=== PATIENT | male | born 1935 | race Caucasian/White ===

== ENCOUNTER 2016-12-12 19:52 | Observation (INO) | payer MEDICARE ==
--- NOTE | 2016-12-12 21:11 | ERPHSYRPT ---
- History of Present Illness Time Seen by Provider: 12/12/16 20:56 Source: patient, family (GRANDDAUGHTER) Exam Limitations: no limitations Patient Subjective Stated Complaint: per pt's family, he has been confused today and was combative with his . pt's family believes he may be dehydrated. Triage Nursing Assessment: pt confused and agitated. not able to give history at this time. pt ambulatory with steady gait noted. respirations nonlabored with lungs cta. pt able to states name. not oriented to place, time, or situation. Physician History: REPORTEDLY PT HAS BEEN CONFUSED AND COMBATIVE WITH TODAY. PT DENIES ANY CHEST PAIN, SHORTNESS OF AIR, FEVER, NAUSEA, VOMITING. Allergies/Adverse Reactions: No Known Drug Allergies Allergy (Verified 08/23/14 06:25) Home Medications: Donepezil HCl 10 mg [Aricept 10 MG] 10 mg PO DAILY 08/23/14 [History] Fenofibrate,Micronized 145 mg* [Tricor 145 MG] 160 mg PO DAILY 08/23/14 [ History] Irbesartan 150 mg [Avapro 150 MG] 150 mg PO DAILY 08/23/14 [History] Memantine HCl [Namenda] 10 mg PO DAILY 08/23/14 [History] Omeprazole 20 MG [Prilosec 20 mg] 20 mg PO DAILY 08/23/14 [History] Quetiapine Fumarate 25 mg [Seroquel 25 MG] 25 mg PO DAILY 08/23/14 [ History] Tamsulosin HCl 0.4 mg [Flomax 0.4 MG] 0.4 mg PO DAILY 08/23/14 [History] Hx Influenza Vaccination/Date Given: (unknown) Hx Pneumococcal Vaccination/Date Given: (unknown) - Review of Systems Constitutional: No Fever, No Chills Respiratory: No Cough, No Dyspnea Cardiac: No Chest Pain Abdominal/Gastrointestinal: No Abdominal Pain, No Nausea, No Vomiting Musculoskeletal: No Back Pain, No Neck Pain Neurological: Other (CONFUSION AND COMBATIVE TODAY.), No Headache All Other Systems: Reviewed and Negative - Past Medical History Pertinent Past Medical History: Yes Neurological History: Alzheimer's Disease ENT History: No Pertinent History Cardiac History: No Pertinent History Respiratory History: No Pertinent History Endocrine Medical History: No Pertinent History Musculoskeletal History: No Pertinent History GI Medical History: Diverticulosis, Gallbladder Disease History: No Pertinent History Psycho-Social History: No Pertinent History Male Reproductive Disorders: Other Other Medical History: states no prostate hx,but is on a prostate med - Past Surgical History Past Surgical History: Yes Neuro Surgical History: No Pertinent History Cardiac: No Pertinent History Respiratory: No Pertinent History Gastrointestinal: Appendectomy, Cholecystectomy, Colon Resection Genitourinary: No Pertinent History Musculoskeletal: No Pertinent History Male Surgical History: No Pertinent History Other Surgical History: colonoscopy, spouse states probably cholecystectomy - Social History Smoking Status: Never smoker Exposure to second hand smoke: No Drug Use: none Patient Lives Alone: Yes - Nursing Vital Signs Nursing Vital Signs: Initial Vital Signs Temperature 97.6 F Temperature Source Oral Pulse Rate 62 Respiratory Rate 20 Blood Pressure [] 155/95 Pain Intensity 0 - Physical Exam General Appearance: no apparent distress, alert Eye Exam: PERRL/EOMI Ears, Nose, Throat Exam: dry mucous membranes Neck Exam: normal inspection Respiratory Exam: lungs clear Cardiovascular Exam: normal heart sounds Gastrointestinal/Abdomen Exam: soft, normal bowel sounds Back Exam: normal range of motion Extremity Exam: normal inspection, No pedal edema Neurologic Exam: alert, cooperative, depot agent II-XII nml as tested, No oriented x 3 ( PT WILL ANSWER SIMPLE QUESTIONS) Skin Exam: warm, dry SpO2 Interpretation: normal SpO2: 97 Oxygen Delivery: Room Air - Course Nursing assessment & vital signs reviewed: Yes EKG Interpreted by Me: RATE (60), Sinus Rhythm, Left Melfa Deviation, Other (1ST DEGREE A-V BLOCK) - Radiology Exams Chest X-ray Interpretation: Interpreted by me, No Pneumonia - CT Exams Head CT Interpretation: Discussed w/radiologist (NONACUTE SENILE BRAIN) Ordered Tests: Active Orders 24 hr Category Date Time Status EKG-ER Only STAT Care 12/12/16 21:08 Active IV Insertion STAT Care 12/12/16 21:08 Active CHEST 1 VIEW (PORTABLE) Stat Exams 12/12/16 21:08 Taken HEAD WITHOUT CONTRAST [CT] Stat Exams 12/12/16 21:08 Taken AMYLASE Stat Lab 12/12/16 21:25 Completed CBC W DIFF Stat Lab 12/12/16 21:25 Completed CMP Stat Lab 12/12/16 21:25 Completed LIPASE Stat Lab 12/12/16 21:25 Completed MAG [MAGNESIUM] Stat Lab 12/12/16 21:25 Completed T4 Stat Lab 12/12/16 21:25 Completed TROPONIN Stat Lab 12/12/16 21:25 Completed TSH [TSH, 3RD Generation] Stat Lab 12/12/16 21:25 Completed UA Stat Lab 12/12/16 21:11 Completed Urine Triage Profile Stat Lab 12/12/16 21:11 Completed Medication Summary Generic Name Dose Route Start Last Admin Trade Name Manojq PRN Reason Stop Dose Admin Sodium Chloride 1,000 mls @ 100 mls/hr 12/12/16 21:15 12/12/16 21:27 Sodium Chloride 0.9% 1000 Ml IV 01/11/17 21:14 100 mls/hr .Q10H SORAYA Administration Levothyroxine Sodium 25 mcg 12/13/16 10:00 Synthroid 25 Mcg PO 01/12/17 09:59 QAM [facility] Lab/Rad Data: Laboratory Result Diagrams 12/12/16 21:25 12/12/16 21:25 Laboratory Results 12/12/16 12/12/16 12/12/16 Range/Units 21:25 21:25 21:25 WBC 4.8 (4.0-10.5) K/mm3 RBC 4.39 (4.1-5.6) M/mm3 Hgb 13.1 (12.5-18.0) gm/dl Hct 38.1 L (42-50) % MCV 86.8 (78-100) fl MCH 29.8 (26-32) pg MCHC 34.4 (32-36) g/dl RDW 12.4 (11.5-14.0) % Plt Count 207 (150-450) K/mm3 MPV 9.2 (6-9.5) fl Gran % 54.1 (36.0-66.0) % Lymphocytes % 31.5 (24.0-44.0) % Monocytes % 9.1 (0.0-12.0) % Eosinophils % 4.1 (0.00-5.0) % Basophils % 1.2 (0.0-0.4) % Basophils # 0.06 (0-0.4) Sodium 139 (136-145) mEq/L Potassium 3.6 (3.5-5.1) mEq/L Chloride 103 (98-107) mEq/L Carbon Dioxide 24.4 (21-32) mEq/L Anion Gap 14.9 (5-15) MEQ/L BUN 11 (9-20) mg/dL Creatinine 1.42 H (0.55-1.30) mg/dl Estimated GFR 51 ML/MIN Glucose 176 H (70-110) MG/DL Calcium 8.6 (8.5-10.1) mg/dL Magnesium 2.0 (1.8-2.4) mg/dL Total Bilirubin 0.5 (0.2-1.0) mg/dL AST 25 (15-37) U/L ALT 22 (12-78) U/L Alkaline Phosphatase 50 (46-116) U/L Troponin I < 0.017 (0.000-0.056) ng/ml Serum Total Protein 7.3 (6.4-8.2) gm/dL Albumin 3.7 (3.4-5.0) g/dL Amylase 28 (25-115) U/L Lipase 248 (73-393) U/L Thyroxine (T4) 6.5 (4.7-13.3) UG/DL TSH 3rd Generation 5.446 H (0.358-3.740) mIU/L Ur Collection Type Urine Color (YELLOW) Urine Appearance (CLEAR) Urine pH (5-6) Ur Specific Naches (1.005-1.025) Urine Protein (Negative) Urine Glucose (UA) (NEGATIVE) mg/dL Urine Ketones (NEGATIVE) Urine Nitrite (NEGATIVE) Urine Bilirubin (NEGATIVE) Urine Urobilinogen (0-1) mg/dL Urine WBC (Auto) (NEGATIVE) Urine RBC (Auto) (0-5) Owen/ul Urine Opiates Level (NEGATIVE) Ur Methadone (NEGATIVE) Urine Barbiturates (NEGATIVE) Ur Phencyclidine (PCP) (NEGATIVE) Urine Amphetamine (NEGATIVE) U Benzodiazepine Level (NEGATIVE) Urine Cocaine (NEGATIVE) Urine Marijuana (THC) (NEGATIVE) Specimen Received 12/12/16 12/12/16 Range/Units 21:11 21:11 WBC (4.0-10.5) K/mm3 RBC (4.1-5.6) M/mm3 Hgb (12.5-18.0) gm/dl Hct (42-50) % MCV (78-100) fl MCH (26-32) pg MCHC (32-36) g/dl RDW (11.5-14.0) % Plt Count (150-450) K/mm3 MPV (6-9.5) fl Gran % (36.0-66.0) % Lymphocytes % (24.0-44.0) % Monocytes % (0.0-12.0) % Eosinophils % (0.00-5.0) % Basophils % (0.0-0.4) % Basophils # (0-0.4) Sodium (136-145) mEq/L Potassium (3.5-5.1) mEq/L Chloride (98-107) mEq/L Carbon Dioxide (21-32) mEq/L Anion Gap (5-15) MEQ/L BUN (9-20) mg/dL Creatinine (0.55-1.30) mg/dl Estimated GFR ML/MIN Glucose (70-110) MG/DL Calcium (8.5-10.1) mg/dL Magnesium (1.8-2.4) mg/dL Total Bilirubin (0.2-1.0) mg/dL AST (15-37) U/L ALT (12-78) U/L Alkaline Phosphatase (46-116) U/L Troponin I (0.000-0.056) ng/ml Serum Total Protein (6.4-8.2) gm/dL Albumin (3.4-5.0) g/dL Amylase (25-115) U/L Lipase (73-393) U/L Thyroxine (T4) (4.7-13.3) UG/DL TSH 3rd Generation (0.358-3.740) mIU/L Ur Collection Type CLEAN CATCH Urine Color YELLOW (YELLOW) Urine Appearance CLEAR (CLEAR) Urine pH 5.0 (5-6) Ur Specific [place] 1.010 (1.005-1.025) Urine Protein NEGATIVE (Negative) Urine Glucose (UA) NEGATIVE (NEGATIVE) mg/dL Urine Ketones NEGATIVE (NEGATIVE) Urine Nitrite NEGATIVE (NEGATIVE) Urine Bilirubin NEGATIVE (NEGATIVE) Urine Urobilinogen 0.2 (0-1) mg/dL Urine WBC (Auto) NEGATIVE (NEGATIVE) Urine RBC (Auto) NEGATIVE (0-5) Owen/ul Urine Opiates Level NEG. (NEGATIVE) Ur Methadone NEG. (NEGATIVE) Urine Barbiturates NEG. (NEGATIVE) Ur Phencyclidine (PCP) NEG. (NEGATIVE) Urine Amphetamine NEG. (NEGATIVE) U Benzodiazepine Level NEG. (NEGATIVE) Urine Cocaine NEG. (NEGATIVE) Urine Marijuana (THC) NEG. (NEGATIVE) Specimen Received 12/12/162099 - Progress Discussed with : Jeff (OBS - [id number]) - Departure Time of Disposition: 22:45 Departure Disposition: Observation Clinical Impression: CONFUSION, HYPOTHYROIDISM, ALZHEIMER'S DISEASE Condition: Stable Critical Care Time: No Referrals: ARPIT COREA [Primary Care Provider] -
[2016-12-12] MEDS ORDERED: Sodium Chloride 0.9% 1000 ML 1,000 ML IV SCH ×2 (21:15→23:17)
[2016-12-12 21:17] LABS: COMPLETE URINE MICROSCOPIC? NO; Collection Type CLEAN CATCH
[2016-12-12] MEDS ORDERED: Sodium Chloride 0.9% 1000 ML 1,000 ML ONE (21:26)
[2016-12-12 21:27] LABS: BASOPHIL % 1.2 % (0.0-0.4); Eosinophil % 4.1 % (0.00-5.0); Granulocytes % 54.1 % (36.0-66.0); Lymphocytes % 31.5 % (24.0-44.0); Mean Cell Volume 86.8 fl (78-100); Mean Corpuscular Hemoglobin 29.8 pg (26-32); Mean Platelet Volume 9.2 fl (6-9.5); Monocytes % 9.1 % (0.0-12.0); Platelet Count 207 K/mm3 (150-450); Red Blood Count 4.39 M/mm3 (4.1-5.6); Red Cell Distribution Width 12.4 % (11.5-14.0); White Blood Count 4.8 K/mm3 (4.0-10.5)
[2016-12-12 21:52] LABS: ALBUMIN 3.7 g/dL (3.4-5.0); ALKALINE PHOSPHATASE 50 U/L (46-116); ANION GAP 14.9 MEQ/L (5-15); BILIRUBIN,TOTAL 0.5 mg/dL (0.2-1.0); BLOOD UREA NITROGEN 11 mg/dL (9-20); CHLORIDE 103 mEq/L (98-107); Carbon Dioxide 24.4 mEq/L (21-32); Glucose 176 MG/DL (70-110); LIPASE 248 U/L (73-393); Potassium 3.6 mEq/L (3.5-5.1); SGOT/AST 25 U/L (15-37); SGPT/ALT 22 U/L (12-78); SODIUM 139 mEq/L (136-145); Total Protein 7.3 gm/dL (6.4-8.2)
[2016-12-12 21:54] LABS: TROPONIN < 0.017 ng/ml (0.000-0.056)
[2016-12-12] MEDS ORDERED: Phenergan 25 MG INJ IV PRN (23:17)
[2016-12-12] MEDS ORDERED: TYLENOL 325 MG PO PRN (23:17)
[2016-12-13 06:01] LABS: BASOPHIL % 0.7 % (0.0-0.4); Eosinophil % 4.2 % (0.00-5.0); Granulocytes % 61.4 % (36.0-66.0); Lymphocytes % 24.7 % (24.0-44.0); Mean Cell Volume 87.3 fl (78-100); Mean Corpuscular Hemoglobin 29.9 pg (26-32); Mean Platelet Volume 9.4 fl (6-9.5); Platelet Count 242 K/mm3 (150-450); Red Blood Count 4.55 M/mm3 (4.1-5.6); Red Cell Distribution Width 12.4 % (11.5-14.0); White Blood Count 5.7 K/mm3 (4.0-10.5)
[2016-12-13 06:47] LABS: ANION GAP 14.2 MEQ/L (5-15); BILIRUBIN,TOTAL 0.7 mg/dL (0.2-1.0); Potassium 4.1 mEq/L (3.5-5.1); Total Protein 7.8 gm/dL (6.4-8.2)
[2016-12-13] MEDS ORDERED: Sodium Chloride 0.9% 1000 ML 1,000 ML IV STA (08:34)
[2016-12-13] MEDS ORDERED: Haldol 5 MG IM PRN (08:37)
--- NOTE | 2016-12-13 08:51 | XRAY ---
Indication: Confusion. Comparison: October 23, 2006. Portable chest again hyperinflated with a few scattered calcific granulomas, focal eventration of the right hemidiaphragm, and previous right shoulder arthroplasty. Remaining heart and lungs normal. Bony thorax intact. Impression: Stable nonacute chest with chronic features.
--- NOTE | 2016-12-13 08:53 | XRAY ---
Indication: Confusion. Dementia. Multiple contiguous axial images obtained through the head without contrast. Comparison: None There is age-appropriate global atrophy and moderate periventricular degenerative micro-ischemia bilaterally. No acute intracranial hemorrhage, abnormal extra-axial fluid collection, or mass effect. Fourth ventricle is midline without hydrocephalus. Bony calvarium intact. There has been previous bilateral maxillary antrectomy. Mastoid air cells are clear. Impression: Nonacute senile brain. CTDI 68.51
[2016-12-13] MEDS ORDERED: SYNTHROID 25 MCG PO SCH ×2 (10:00)
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
[2016-12-13] MEDS ORDERED: Aricept 10 MG PO SCH (13:30)
[2016-12-13] MEDS ORDERED: Flomax 0.4 MG PO SCH (13:30)
[2016-12-13] MEDS ORDERED: Cozaar 50 MG PO SCH (13:30)
[2016-12-13] MEDS ORDERED: Seroquel 25 MG PO SCH (13:45)
[2016-12-13] MEDS ORDERED: Tricor 145 MG PO SCH (13:45)
[2016-12-13] MEDS ORDERED: Namenda 5 MG PO SCH (13:45)
[2016-12-13] MEDS: Protonix 40MG Tablet PO SCH (14:06)
[2016-12-13 16:24] VITALS: BP 136/72; PULSE 66; O2SAT 97
[2016-12-13] MEDS ORDERED: NON-FORMULARY ITEM (Memantine Hcl [Namenda] 10 MG) PO SCH (22:00)
[2016-12-14] MEDS ORDERED: NON-FORMULARY ITEM (Omeprazole 20 Mg [Prilosec 20 Mg] 20 MG) PO SCH (10:00)
== END 2016-12-13 17:40 | disposition home or self-care (01) ==
LOC: ED 19:52 → MED SURG 23:08
PROVIDERS: ADMIT Family Medicine; ATTEND Family Medicine
DX: G30.9 Alzheimer's disease, unspecified (principal); F02.80 Dementia in other diseases classified elsewhere, unspecified severity, without behavioral disturbance, psychotic disturbance, mood disturbance, and anxiety; Z90.49 Acquired absence of other specified parts of digestive tract; Z79.899 Other long term (current) drug therapy
CPT/HCPCS: 36000; 36415; 70450; 71010; 80053; 80307; 81002; 82150; 83690; 83735; 84436; 84443; 84484; 85025; 93005; 93268; 96360; 96361; 99285; G0378; J1630; A9270-GY

== ENCOUNTER 2018-04-06 10:23 | Emergency (ER) | payer MEDICARE ==
--- NOTE | 2018-04-06 10:54 | ERPHSYRPT ---
- History of Present Illness Time Seen by Provider: 04/06/18 10:53 Source: family Exam Limitations: other (dementia) Patient Subjective Stated Complaint: pt daughter reports that the last 2 to 3 nights pt has vomited-states that during the day pt does not vomit-denies changes in pt appetite or behavior Triage Nursing Assessment: pt pink warm and dry-answers to name-obeys simple commands with guidance-resp easy and nonlabored-no reaction to abd palp-abd soft Physician History: The patient is an 82-year-old male with advanced Alzheimer's disease presents with his daughters for 2-3 nights of vomiting. The patient's stays with him at home and tries to take care of him, as she has done for the last 10 years. The daughters have come over today because his also has been experiencing significant vomiting for the last 3 or 4 days. The patient doesn' t vomit during the day but appears to vomit at night area the daughters state he may be dehydrated. The patient is unable to answer questions appropriately. He has been eating normally during the day. He typically does not consume very much liquid during the day. He denies pain of any kind. His past medical history is significant for Alzheimer's dementia, BPH, GERD, high cholesterol, and hypertension. The pt is on hospice. Timing/Duration: day(s) (3), intermittent, gradual onset Severity: moderate Modifying Factors: Improves With: nothing Associated Symptoms: vomiting, No abdominal pain Allergies/Adverse Reactions: No Known Drug Allergies Allergy (Verified 04/06/18 10:51) Home Medications: Donepezil HCl 10 mg [Aricept 10 MG] 10 mg PO BID 08/23/14 [History] Fenofibrate,Micronized 145 mg* [Tricor 145 MG] 160 mg PO DAILY 08/23/14 [ History] Memantine HCl [Namenda] 10 mg PO BID 08/23/14 [History] Omeprazole 20 MG [Prilosec 20 mg] 20 mg PO DAILY 08/23/14 [History] Quetiapine Fumarate 25 mg [Seroquel 25 MG] 50 mg PO BID 08/23/14 [History] Tamsulosin HCl 0.4 mg [Flomax 0.4 MG] 0.4 mg PO DAILY 08/23/14 [History] Losartan Potassium 50 mg [Cozaar 50 MG] 100 mg PO DAILY 12/13/16 [History] Hx Tetanus, Diphtheria Vaccination/Date Given: No Hx Influenza Vaccination/Date Given: No Hx Pneumococcal Vaccination/Date Given: No Immunizations Up to Date: Yes - Review of Systems Constitutional: No Fever, No Chills Eyes: No Symptoms Ears, Nose, & Throat: No Symptoms Respiratory: No Cough, No Dyspnea Cardiac: No Chest Pain, No Edema, No Syncope Abdominal/Gastrointestinal: Vomiting Genitourinary Symptoms: No Dysuria Musculoskeletal: No Back Pain, No Neck Pain Skin: No Rash Neurological: No Dizziness, No Focal Weakness, No Sensory Changes Psychological: No Symptoms Endocrine: No Symptoms Hematologic/Lymphatic: No Symptoms Immunological/Allergic: No Symptoms All Other Systems: Reviewed and Negative - Past Medical History Pertinent Past Medical History: Yes Neurological History: Alzheimer's Disease ENT History: No Pertinent History Cardiac History: No Pertinent History Respiratory History: No Pertinent History Endocrine Medical History: No Pertinent History Musculoskeletal History: No Pertinent History GI Medical History: Diverticulosis, Gallbladder Disease History: No Pertinent History Psycho-Social History: No Pertinent History Male Reproductive Disorders: Other Other Medical History: states no prostate hx,but is on a prostate med - Past Surgical History Past Surgical History: Yes Neuro Surgical History: No Pertinent History Cardiac: No Pertinent History Respiratory: No Pertinent History Gastrointestinal: Appendectomy, Cholecystectomy, Colon Resection Genitourinary: No Pertinent History Musculoskeletal: No Pertinent History Male Surgical History: No Pertinent History Other Surgical History: colonoscopy, spouse states probably cholecystectomy - Social History Smoking Status: Never smoker Exposure to second hand smoke: No Drug Use: none Patient Lives Alone: No - Nursing Vital Signs Nursing Vital Signs: Initial Vital Signs Temperature 98.4 F 04/06/18 10:46 Pulse Rate 76 04/06/18 10:46 Respiratory Rate 18 04/06/18 10:46 Blood Pressure 143/86 04/06/18 10:46 O2 Sat by Pulse Oximetry 97 04/06/18 10:46 Pain Scale Pain Intensity 0 - Physical Exam General Appearance: no apparent distress, alert Eye Exam: PERRL/EOMI, eyes nml inspection Ears, Nose, Throat Exam: dry mucous membranes Neck Exam: normal inspection, non-tender, supple, full range of motion Respiratory Exam: normal breath sounds, lungs clear, No respiratory distress Cardiovascular Exam: regular rate/rhythm, normal heart sounds, normal peripheral pulses Gastrointestinal/Abdomen Exam: soft, normal bowel sounds, No tenderness, No mass Rectal Exam: not done Back Exam: normal inspection, normal range of motion, No CVA tenderness, No vertebral tenderness Extremity Exam: normal inspection, normal range of motion, pelvis stable Neurologic Exam: alert, cooperative Skin Exam: normal color, warm, dry, No rash Lymphatic Exam: No adenopathy SpO2 Interpretation: normal SpO2: 97 Oxygen Delivery: Room Air Ordered Tests: Active Orders 24 hr Category Date Time Status IV Insertion STAT Care 04/06/18 11:11 Active OBSTR/ACUTE ABDOMEN SERIES Stat Exams 04/06/18 12:24 Taken BMP Stat Lab 04/06/18 11:18 Completed CBC W DIFF Stat Lab 04/06/18 11:18 Completed Lactic Acid Stat Lab 04/06/18 11:20 Completed Medication Summary Discontinued Medications Generic Name Dose Route Start Last Admin Trade Name Freq PRN Reason Stop Dose Admin Sodium Chloride 1,000 mls @ 999 mls/hr 04/06/18 11:11 04/06/18 11:46 Sodium Chloride 0.9% 1000 Ml IV 04/06/18 12:11 999 mls/hr .Q1H1M STA Administration Sodium Chloride Confirm 04/06/18 11:26 Sodium Chloride 0.9% 1000 Ml Administered 04/06/18 11:27 Dose 1,000 mls @ ud .ROUTE .STK-MED ONE Ondansetron HCl 4 mg 04/06/18 11:11 04/06/18 11:46 Zofran 4 Mg/2 Ml Vial IV 04/06/18 11:12 4 mg STAT ONE Administration Ondansetron HCl Confirm 04/06/18 11:26 Zofran 4 Mg/2 Ml Vial Administered 04/06/18 11:27 Dose 4 mg .ROUTE .STK-MED ONE Lab/Rad Data: Laboratory Result Diagrams 04/06/18 11:18 04/06/18 11:18 Laboratory Results 04/06/18 04/06/18 04/06/18 Range/Units 11:20 11:18 11:18 WBC 7.6 (4.0-10.5) K/mm3 RBC 4.98 (4.1-5.6) M/mm3 Hgb 15.3 (12.5-18.0) gm/dl Hct 44.5 (42-50) % MCV 89.4 (78-100) fl MCH 30.7 (26-32) pg MCHC 34.4 (32-36) g/dl RDW 12.9 (11.5-14.0) % Plt Count 241 (150-450) K/mm3 MPV 9.4 (6-9.5) fl Gran % 66.1 H (36.0-66.0) % Eos # (Auto) 0.16 (0-0.5) Absolute Lymphs (auto) 1.69 (1.0-4.6) Absolute Monos (auto) 0.68 (0.0-1.3) Lymphocytes % 22.3 L (24.0-44.0) % Monocytes % 9.0 (0.0-12.0) % Eosinophils % 2.1 (0.00-5.0) % Basophils % 0.5 (0.0-0.4) % Absolute Granulocytes 5.00 (1.4-6.9) Basophils # 0.04 (0-0.4) Sodium 141 (137-145) mmol/L Potassium 4.0 (3.5-5.1) mmol/L Chloride 104 (98-107) mmol/L Carbon Dioxide 26 (22-30) mmol/L Anion Gap 14.1 (5-15) MEQ/L BUN 12 (9-20) mg/dL Creatinine 0.88 (0.66-1.25) mg/dL Estimated GFR > 60.0 ML/MIN Glucose 132 H (74-106) mg/dL Lactic Acid 1.8 (0.4-2.0) Calcium 9.2 (8.4-10.2) mg/dL - Progress Progress: improved - Departure Time of Disposition: 14:12 Departure Disposition: Home Clinical Impression: Vomiting Condition: Stable Critical Care Time: No Referrals: ARPIT COREA [Primary Care Provider] - Additional Instructions: You have vomiting in the evenings. You were given Zofran 4 mg in the ER. You may continue to take Zofran 4 mg ODT every 6 hours as needed. Follow-up as needed. Prescriptions: Ondansetron ODT 4 MG [Zofran Odt 4 mg] 1 tab PO Q6H PRN PRN #10 tab.rapdis PRN Reason: Nausea/Vomiting
[2018-04-06] MEDS ORDERED: Zofran 4 MG/2 ML VIAL ONE (11:26)
[2018-04-06] MEDS ORDERED: Sodium Chloride 0.9% 1000 ML 1,000 ML ONE (11:26)
[2018-04-06 11:27] LABS: BASOPHIL % 0.5 % (0.0-0.4); Basophil (Absolute #) 0.04 (0-0.4); Eosinophil % 2.1 % (0.00-5.0); Eosinophil (Absolute #) 0.16 (0-0.5); Granulocytes % 66.1 % (36.0-66.0); Hematocrit 44.5 % (42-50); Hemoglobin 15.3 gm/dl (12.5-18.0); Lymphocyte (Absolute #) 1.69 (1.0-4.6); Lymphocytes % 22.3 % (24.0-44.0); Mean Cell Volume 89.4 fl (78-100); Mean Corpuscular Hemoglobin 30.7 pg (26-32); Mean Corpuscular Hgb Concent. 34.4 g/dl (32-36); Mean Platelet Volume 9.4 fl (6-9.5); Monocyte (Absolute #) 0.68 (0.0-1.3); Platelet Count 241 K/mm3 (150-450); Red Blood Count 4.98 M/mm3 (4.1-5.6); Red Cell Distribution Width 12.9 % (11.5-14.0); White Blood Count 7.6 K/mm3 (4.0-10.5)
[2018-04-06 11:37] LABS: ANION GAP 14.1 MEQ/L (5-15); BLOOD UREA NITROGEN 12 mg/dL (9-20); CHLORIDE 104 mmol/L (98-107); Calcium 9.2 mg/dL (8.4-10.2); Carbon Dioxide 26 mmol/L (22-30); Creatinine 1 0.88 mg/dL (0.66-1.25); Glucose 132 mg/dL (74-106); SODIUM 141 mmol/L (137-145)
[2018-04-06] MEDS: Sodium Chloride 0.9% 1000 ML 1,000 ML IV STA (11:46)
[2018-04-06] MEDS: Zofran 4 MG/2 ML VIAL IV ONE (11:46)
[2018-04-06 14:46] VITALS: BP 157/79; PULSE 53; O2SAT 98
--- NOTE | 2018-04-06 20:05 | XRAY ---
Indication: Nausea and vomiting. Comparison: Chest exam December 12, 2016. 2 views of the abdomen demonstrates nonspecific nonobstructive bowel gas pattern with previous cholecystectomy. 3.7 cm ovoid density overlies the cholecystectomy clips presumed postsurgical. Remaining solid organs are unremarkable. Osseous structures intact with mild osteopenia, mild/moderate multilevel lumbar degenerative spondylosis, and mild double curvature scoliosis. Single PA chest again demonstrates normal heart and lungs with incidental tiny calcified granulomas. Bony thorax intact again with mild osteopenia, mild double curvature scoliosis, and right shoulder arthroplasty. Impression: 1. Nonacute nonobstructed abdomen. 2. Stable nonacute 1V chest.
== END 2018-04-06 14:48 | disposition home or self-care (01) ==
LOC: ED 10:23
DX: R11.10 Vomiting, unspecified (principal); G30.9 Alzheimer's disease, unspecified; F02.80 Dementia in other diseases classified elsewhere, unspecified severity, without behavioral disturbance, psychotic disturbance, mood disturbance, and anxiety; N40.0 Benign prostatic hyperplasia without lower urinary tract symptoms; K21.0 Gastro-esophageal reflux disease with esophagitis; E78.00 Pure hypercholesterolemia, unspecified; I10 Essential (primary) hypertension
CPT/HCPCS: 36000; 36415; 74022; 80048; 83605; 85025; 96374; 99284; J2405

== ENCOUNTER 2018-05-10 13:25 | Emergency (ER) | payer MEDICARE ==
[2018-05-10] MEDS ORDERED: MAALOX ES 30 ML UNIT DOSE PO ONE (13:46)
--- NOTE | 2018-05-10 13:51 | ERPHSYRPT ---
- History of Present Illness Time Seen by Provider: 05/10/18 13:40 Source: patient, family Exam Limitations: no limitations Physician History: 82 y/o male brought in by family for rash across the abdomen that started yesterday. Pt has Alzheimer's and is not able to provide a reliable history. Pt is not in any distress. The family did notice that he was having hiccuping which stopped in the ER. No fever, chills, abdominal pain, nausea, vomiting, diarrhea or bloody stools. Timing/Duration: yesterday Quality: burning Severity: mild Location: torso Possible Causes: no cause identified Modifying Factors: Improves With: other (none) Associated Symptoms: blisters, change in skin texture Allergies/Adverse Reactions: No Known Drug Allergies Allergy (Verified 04/06/18 10:51) Home Medications: Donepezil HCl 10 mg [Aricept 10 MG] 10 mg PO BID 08/23/14 [History] Fenofibrate,Micronized 145 mg* [Tricor 145 MG] 160 mg PO DAILY 08/23/14 [ History] Memantine HCl [Namenda] 10 mg PO BID 08/23/14 [History] Omeprazole 20 MG [Prilosec 20 mg] 20 mg PO DAILY 08/23/14 [History] Quetiapine Fumarate 25 mg [Seroquel 25 MG] 50 mg PO BID 08/23/14 [History] Tamsulosin HCl 0.4 mg [Flomax 0.4 MG] 0.4 mg PO DAILY 08/23/14 [History] Losartan Potassium 50 mg [Cozaar 50 MG] 100 mg PO DAILY 12/13/16 [History] Hx Tetanus, Diphtheria Vaccination/Date Given: No Hx Influenza Vaccination/Date Given: No Hx Pneumococcal Vaccination/Date Given: No - Review of Systems Constitutional: No Fever, No Chills Eyes: No Symptoms Ears, Nose, & Throat: No Symptoms Respiratory: No Cough, No Dyspnea Cardiac: No Chest Pain, No Edema, No Syncope Abdominal/Gastrointestinal: No Abdominal Pain, No Nausea, No Vomiting, No Diarrhea Genitourinary Symptoms: No Dysuria Musculoskeletal: No Back Pain, No Neck Pain Skin: Rash, Skin Lesions Neurological: No Dizziness, No Focal Weakness, No Sensory Changes Psychological: No Symptoms Endocrine: No Symptoms All Other Systems: Reviewed and Negative - Past Medical History Pertinent Past Medical History: Yes Neurological History: Alzheimer's Disease ENT History: No Pertinent History Cardiac History: No Pertinent History Respiratory History: No Pertinent History Endocrine Medical History: No Pertinent History Musculoskeletal History: No Pertinent History GI Medical History: Diverticulosis, Gallbladder Disease History: No Pertinent History Psycho-Social History: No Pertinent History Male Reproductive Disorders: Other Other Medical History: states no prostate hx,but is on a prostate med - Past Surgical History Past Surgical History: Yes Neuro Surgical History: No Pertinent History Cardiac: No Pertinent History Respiratory: No Pertinent History Gastrointestinal: Appendectomy, Cholecystectomy, Colon Resection Genitourinary: No Pertinent History Musculoskeletal: No Pertinent History Male Surgical History: No Pertinent History Other Surgical History: colonoscopy, spouse states probably cholecystectomy - Social History Smoking Status: Never smoker Exposure to second hand smoke: No Drug Use: none Patient Lives Alone: No - Nursing Vital Signs Nursing Vital Signs: Initial Vital Signs Temperature 98.9 F 05/10/18 13:41 Pulse Rate 76 05/10/18 13:41 Respiratory Rate 20 05/10/18 13:41 Blood Pressure 128/84 05/10/18 13:41 O2 Sat by Pulse Oximetry 98 05/10/18 13:41 Pain Scale Pain Intensity 0 - Physical Exam General Appearance: no apparent distress, alert Eye Exam: PERRL/EOMI, eyes nml inspection Ears, Nose, Throat Exam: normal ENT inspection, pharynx normal, moist mucous membranes Neck Exam: normal inspection, non-tender, supple, full range of motion Respiratory Exam: normal breath sounds, lungs clear, No respiratory distress Cardiovascular Exam: regular rate/rhythm, normal heart sounds Gastrointestinal/Abdomen Exam: soft, mass, No tenderness Back Exam: normal inspection, normal range of motion, No CVA tenderness, No vertebral tenderness Extremity Exam: normal inspection, normal range of motion Neurologic Exam: alert, oriented x 3, cooperative, normal mood/affect, sensation nml, No motor deficits Skin Exam: warm, dry, rash, ecchymosis (blisters across the right side of abdomen) - Course Nursing assessment & vital signs reviewed: Yes Ordered Tests: Medication Summary Discontinued Medications Generic Name Dose Route Start Last Admin Trade Name Freq PRN Reason Stop Dose Admin Al Hydrox/Mg Hydrox/Simethicone 30 ml 05/10/18 13:46 05/10/18 14:00 Maalox Es 30 Ml Unit Dose PO 05/10/18 13:47 30 ml STAT ONE Administration Al Hydrox/Mg Hydrox/Simethicone Confirm 05/10/18 13:58 Maalox Es 30 Ml Unit Dose Administered 05/10/18 13:59 Dose 30 ml .ROUTE .STK-MED ONE - Progress Progress: unchanged Progress Note: 05/10/18 13:49 Pt has classic shingles across the abdomen and will be treated with 7 days of Valtrex. - Departure Time of Disposition: 13:49 Departure Disposition: Home Clinical Impression: Shingles Qualifiers: Herpes zoster complications: without complications Qualified Code(s): B02.9 - Zoster without complications Condition: Stable Critical Care Time: No Referrals: [facility] [Primary Care Provider] - Instructions: Shingles (DC) Additional Instructions: Return to the ER if the rash has not subsided in the next week, worsening pain, fever or chills. Finish the Valtrex until completion. Prescriptions: Baclofen 10 mg PO TID PRN #20 tablet PRN Reason: Gas Or Belching Valacyclovir HCl [Valtrex] 1,000 mg PO TID #21 tablet
[2018-05-10] MEDS ORDERED: MAALOX ES 30 ML UNIT DOSE ONE (13:58)
[2018-05-10 14:26] VITALS: BP 145/83; PULSE 78; O2SAT 96
== END 2018-05-10 14:33 | disposition home or self-care (01) ==
LOC: ED 13:25
DX: B02.9 Zoster without complications (principal); Z79.899 Other long term (current) drug therapy
CPT/HCPCS: 99283; A9270-GY